=== PATIENT | male | born 1995 | race African-American/Black ===

== ENCOUNTER 2024-12-23 09:11 | Emergency (ER) | payer OTHER ==
[~2024-12-23] VITALS: Ht 180.3 cm; Wt 73.9 kg
[2024-12-23 09:14] VITALS: PULSE 72; RESP 12; O2SAT 100
[2024-12-23 09:19] VITALS: BP 124/75; TEMP 36.7; O2SAT 98
[2024-12-23 09:51] LABS: BASOPHILS % 0.5 % (0.0-2.0); HEMATOCRIT. 46.3 % (42.0-52.0); HEMOGLOBIN. 14.9 g/dL (14.0-18.0); LYMPHOCYTES % 43.9 % (20.0-50.0); MEAN CORPUSCULAR HGB CONC 32.2 g/dL (31.0-37.0); MEAN CORPUSCULAR VOLUME 83.8 fL (80.0-94.0); MEAN PLATELET VOLUME 10.1 fl (7.4-10.4); NEUTROPHILS % 39.6 % (40.0-76.0); PLATELET 155 x1000/uL (130-400); RED BLOOD CELL COUNT 5.52 mill/uL (4.7-6.1); RED CELL DISTRIBUTION WIDTH 13.8 % (11.6-14.6); WHITE BLOOD COUNT 4.4 x1000/uL (4.5-11.0)
[2024-12-23 10:09] LABS: CALCIUM 9.7 mg/dL (8.7-10.4); CARBON DIOXIDE 29 mEq/L (21-32); CHLORIDE 103 mEq/L (98-107); POTASSIUM 4.2 mEq/L (3.5-5.1); SODIUM 140 mEq/L (136-145)
[2024-12-23 10:14] LABS: CREATININE 0.9 mg/dL (0.6-1.3); GLUCOSE 91 mg/dL (70-105)
[2024-12-23 10:15] LABS: UREA NITROGEN BLOOD 12 mg/dL (9-23)
[2024-12-23 10:16] LABS: ALANINE AMINOTRANSFERASE 24 IU/L (10-49); ALBUMIN 4.4 g/dL (3.2-4.8); ASPARTATE AMINOTRANSFERASE 49 IU/L (<34); BILIRUBIN DIRECT 0.2 mg/dL (<=3.0)
[2024-12-23 10:17] LABS: BILIRUBIN TOTAL 0.9 mg/dL (0.1-1.0); PROTEIN TOTAL 7.8 g/dL (6.0-8.3)
[2024-12-23] MEDS: KETOROLAC 30MG/ML VIAL IM STA (10:51)
[2024-12-23] MEDS ORDERED: NAPR-1495 MT (11:54)
== END 2024-12-23 12:23 | disposition home or self-care (01) ==
LOC: ER 09:11
DX: R10.9 Unspecified abdominal pain (principal); K57.30 Diverticulosis of large intestine without perforation or abscess without bleeding; Z79.1 Long term (current) use of non-steroidal anti-inflammatories (NSAID); Z87.442 Personal history of urinary calculi
CPT/HCPCS: 80076; 80048; 85025; 36415; 74176; 96372; 99285; J1885; Z7610